=== PATIENT | female | born 1950 | race Caucasian/White ===

== ENCOUNTER → 2017-02-04 | Outpatient (CLI) | payer MEDICARE, BC ==
[~2017-02-04] MED LIST: ASPIRIN325 MG PO; BACTRIM DS TAB1 EACH PO; CPAP INH; DUREZOL5 ML OPHTH; HYDROCHLOROTH12.5 MG PO; MACROBID100 MG PO; NORVASC2.5 MG PO; PAIN RELIEVER325 MG PO; PREMARIN VAG30 GM TOP; REFRESH PLUS1 EACH OPHTH
--- NOTE | ~2017-02-04 | ECHO ---
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 Procedure Date Date: 02/04/2017 Start: 10:10 AM Indications:Shortness of breath. Additional Indications:The heart rate was appropriate as well as the blood pressure to the exercise stress. There was ST depression and complaints of chest pressure during the stress. The Ruiz treadmill score was -5 . Conclusions Summary Stress EKGs show inducible ST segment depression with rapid recovery. Findings consistent with possible ischemia. Stress Protocol Rest ECG RSR with T wave inversion V2. Resting HR:56 bpmResting BP:162/78 mmHg Pre-Stress Physical Exam History of JEROME going up incline. New diagnosis of hypertension started on HCTZ. Two paternal uncles with NE at age 40's. Exam and supervision by Mia Dumont APRN. Stress Peak HR: 141 bpm HR Response: Appropriate Peak BP: 192/88 mmHg BP Response: Appropriate Predicted HR: 152 bpm HR BP Product: 41476 % of predicted HR: 93 Test Duration: 04:32 min Exercise Effort: Fair Reason for Termination: Target heart rate Perceived Exertion: 16 ECG Sinus tachycardia with ST depression in Lead II, III, AVF, V4, V5 V6 Arrhythmias None Symptoms AT 2 minutes and 41 seconds complains of shortness of breath and chest pressure. All symptoms resolve with rest with in 3 minutes into recovery. Signature dtt: David Willis (cardio) dtd: 02/04/17 1010 Physician Self Edit
== END | disposition disaster alternative care site (69) ==
LOC: GCAR 09:43
DX: R06.02 Shortness of breath (principal)

== ENCOUNTER → 2017-02-11 | Outpatient (CLI) | payer MEDICARE, BC ==
[2017-02-11 17:13] LABS: BASOPHIL # 0.1 K/uL (0.0-0.2); BASOPHIL % 1.2 %; EOSINOPHIL # 0.7 K/uL (0.0-0.5); EOSINOPHIL % 12.5 %; HEMATOCRIT 37.6 % (33.0-46.0); HEMOGLOBIN 12.8 g/dL (10.0-15.0); IMMATURE GRANULOCYTE % 0.4 %; LYMPHOCYTE # 1.6 K/uL (0.8-4.0); LYMPHOCYTE % 30.3 %; MCV 82.3 fl (83.0-98.0); MONOCYTE # 0.5 K/uL (0.0-1.0); MONOCYTE % 9.4 %; MPV 9.1 fl (9.4-12.4); NEUTROPHIL # (ANC) 2.4 K/uL (1.8-7.8); NEUTROPHIL % 46.2 %; NRBC % 0 /100WBC (0-0.00); PLATELET COUNT 238 K/uL (150-450); RBC 4.57 M/uL (3.50-5.50); RDW-CV 12.3 % (11.9-14.6); WBC 5.2 K/uL (4.0-11.0)
[2017-02-11 17:22] LABS: ANION GAP 9.9 (10.0-19.0); BLOOD UREA NITROGEN 16 mg/dL (6-24); CALCIUM 8.6 mg/dL (8.5-10.5); CHLORIDE 98 mMol/L (96-110); CO2 28 mMol/L (22-32); CREATININE 0.7 mg/dL (0.5-1.1); ESTIMATED GFR (MDRD EQUATION) > 60; POTASSIUM 3.9 mMol/L (3.7-5.1); SODIUM 132 mMol/L (135-145)
== END | disposition disaster alternative care site (69) ==
LOC: LCNC 17:08
PROVIDERS: Internal Medicine Interventional Cardiology
DX: R07.9 Chest pain, unspecified (principal)

== ENCOUNTER → 2017-02-20 | Outpatient (CLI) | payer MEDICARE, BC ==
[2017-02-20 11:38] LABS: BILIRUBIN URINE NEGATIVE (NEGATIVE); BLOOD URINE 250 /UL (NEGATIVE); COLOR URINE STRAW (YELLOW); GLUCOSE URINE NEGATIVE (NEGATIVE); KETONE URINE NEGATIVE (NEGATIVE); LEUKOCYTES URINE 100 /UL (NEGATIVE); NITRITE URINE NEGATIVE (NEGATIVE); PROTEIN URINE NEGATIVE (NEGATIVE); SPEC GRAVITY URINE 1.005 (1.003-1.035); TURBIDITY URINE 1+ (CLEAR); UROBILINOGEN URINE NORMAL (NORMAL)
[2017-02-20 11:45] LABS: BACTERIA URINE NEGATIVE (NEGATIVE); EPITHELIAL URINE 0-2 #/HPF (NEGATIVE)
== END | disposition disaster alternative care site (69) ==
LOC: LCNC 11:34
PROVIDERS: Internal Medicine Interventional Cardiology
DX: M54.9 Dorsalgia, unspecified (principal)

== ENCOUNTER 2017-02-24 09:05 | Outpatient (CLI) | payer MEDICARE, BC ==
[~2017-02-24] VITALS: Ht 163.8 cm; Wt 80.3 kg
--- NOTE | ~2017-02-24 | CATH ---
Cardiac Diagnostic Report Demographics Patient Name HUYEN Han Gender Female Date of 1950 Age 67 year(s) Patient Number [id number] Date of Study 02/24/2017 Visit Number [id number] Room Number [id number] [place] [id number] Ht 162.56 cm Wt 80.3 kg Referring Alba Hernandez MD Primary Physician Physician Jos Jalloh MD Performing Alba Hernandez MD Secondary Physician Physician Diagnostic Alba Hernandez MD Assisting Physician Physician Interventional Physician Psychodramatist Physician Findings and Conclusions Diagnostic Findings and Conclusion Nonobstructive CAD. Normal LV function. Diastolic dysfunction. Diagnostic Recommendations Medical therapy. Procedure Description The patient was brought to the diagnostic cardiac catheterization-EP laboratory in the fasting, non-sedated state. Informed consent was obtained in the written and verbal form after the risks and benefits were explained. The patient had no further questions and agreed to proceed. The planned puncture-incision site(s) were shaved and prepped with ChloraPrep and draped in the usual sterile manner. Conscious sedation, supplemental oxygen, and pain control medications were delivered by a registered nurse under physician guidance. Surface ECG rhythm, blood pressure measurement, and pulse oximetry were monitored throughout the procedure. Arterial access. The access site was infiltrated with lidocaine. The vessel was entered with the Seldinger technique. A sheath was advanced into the vessel and used for catheter placement. Selective left coronary angiography. A catheter was advanced into the left coronary vessel ostium under Fluoroscopic guidance. Contrast was injected by hand. Images were obtained in multiple projections. Selective right coronary angiography. A catheter was advanced into the right coronary vessel ostium under fluoroscopic guidance. Contrast was injected by hand. Images were obtained in multiple projections. Left heart catheterization with ventriculography. A catheter was advanced across the aortic valve to the left ventricle under fluoroscopic guidance. Resting hemodynamics were obtained. With the catheter at the left ventricular apex, contrast was injected. Images were obtained in MAURITIAN projections. Post-ventriculography LV pressure was obtained. The catheter was gradually withdrawn into the aorta with continuous pressure recording. Arterial artery hemostasis was achieved. The patient was transferred to a regular nursing floor via cart accompanied by a nurse. The patient left the laboratory in stable condition. Diagnostic Cath Status: Elective Procedure Procedure Type Diagnostic procedure:Ventriculogram:, Left, Angiography:, Coronary Angios w/[facility] Indications: Chest pain and Shortness of breath. The procedure was explained in detail to the patient. Risks, complications and alternative treatments were reviewed. Written consent was obtained. Medications Reviewed with Patient prior to Procedure. Angiographic Findings Dominance: Right Cardiac Arteries and Lesion Findings LMCA: Normal (0% Stenosis).Medium, normal. LAD: Normal (0% Stenosis).LAD medium, mild mid plaque, normal. Diagonal 1 small, normal. LCx: Normal (0% Stenosis).Circumflex large, nondominant, normal. OM1 small, normal. OM2 large, normal. RCA: Normal (0% Stenosis).RCA medium to large, normal. PL small, normal. PDA medium, normal. Procedure Data Procedure Date Date: 02/24/2017Start: 10:31 AMEnd: 10:52 AM Entry Locations - Retrograde Percutaneous access was performed through the Right Femoral artery (Primary location). A 6 Fr sheath was inserted. Closure Comments: Deployed by Valeria. Procedure Medications Order and Administration + + +-------+------+ !Time !Medication !Dosage !Route ! + + +-------+------+ 02/24/2017 10:28 AM !Fentanyl !25 mcg !I.V. ! + + +-------+------+ !02/24/2017 10:30 AM !Versed !1 mg !I.V. ! + + +-------+------+ Devices Used - A6 Fr. BS JL 4 Diag. Catheterwas used for:Left coronary angiography. - A6 Fr. BS JR 4 Diag. Catheterwas used for:Right coronary angiography. - A6 Fr. BS Angled Pigtail Diag. Catheterwas used for:Left ventriculography. Contrast Material - Isovue 166328 ml Fluoroscopy Time: Diagnostic: 2:30 minutes. Total: 2:30 minutes. Fluoroscopy Dose: Diagnostic: 502 mGy. Total: 502 mGy. Estimated Blood Loss: 4 ml. Medical History Allergies - Latex. - Other:(Tapentadol). Risk Factors The patient risk factors include:treated hypertension, family history of premature CAD, last creatinine: 0.7 mg/dl and creatinine clearance: 96.15 ml/min. Admission Data Admission Date: 02/24/2017 Admission Time: 09:05 AM Admit Source: Other Insurance Payors: Medicare. Admission Medications + +------+-------+ + + + + !Medication!Dosage!Times !Last !Last !Administered !Comments ! ! ! !Per Day!Delivery !Delivery ! ! ! ! ! ! !Date !Time ! ! ! + +------+-------+ + + + + !Aspirin ! ! ! ! !Yes ! ! !(any) ! ! ! ! ! ! ! + +------+-------+ + + + + Clinical Evaluation Leading to Procedure - The patient's CAD presentation was assessed as: Unstable angina. - The patient's anginal syndrome during the past two weeks was assessed as: Class III according to the [place] [employer] Classification System (CCS). Anti-anginal medications were prescribed during the past two weeks. The medication is: Ca channel Blockers. [facility] Ventriculography Findings Increased LVEDP with Diastolic Dysfunction. LV function assessed as:Normal. Ejection Fraction - Method: LV gram. EF%: 65. Hemodynamics Condition: Rest O2 Consumption: Estimated: 161.23Heart Rate: 55 bpm Pressures (mmHg) +-----+ + !Site !Pressure ! +-----+ + !AO !121/60 (85) ! +-----+ + !AO !125/58 (84) ! +-----+ + !LV !122/2 ,21 ! +-----+ + !LV !121/3 ,20 ! +-----+ + !LV !121/4 ,21 ! +-----+ + !LV !125/1 ,23 ! +-----+ + !AO !123/58 (86) ! +-----+ + !LV !123/1 ,22 ! +-----+ + Valve Gradients and Areas + +---------+---------+---------+ +---------+ + !Valve !Peak !Mean !Area !Index !Flow !Source ! + +---------+---------+---------+ +---------+ + !Aortic !0 !0 ! ! ! ! ! + +---------+---------+---------+ +---------+ + !Aortic !0 !0 ! ! ! ! ! + +---------+---------+---------+ +---------+ + Shunts Oxygen Values O2 Capacity 174.08 O2 Consumption 161.23 Discharge Data Discharge Date: 02/24/2017 Hospital Status: Outpatient Signatures dtt: David Willis (cardio) dtd: 02/24/17 1031 Physician Self Edit
[~2017-02-24 09:05] MED LIST changes: -BACTRIM DS TAB1 EACH PO
[2017-02-24] MEDS ORDERED: BACTRIM DS TAB1 EACH PO (09:17)
== END 2017-02-24 14:15 | disposition disaster alternative care site (69) ==
LOC: GCAT 09:05 → GPCU 09:05 → GPOC 11:00 → GCAT 14:15
PROC: B2111ZZ Fluoroscopy of Multiple Coronary Arteries using Low Osmolar Contrast (ICD-10-PCS; principal; 2017-02-24)
PROC: 4A023N7 Measurement of Cardiac Sampling and Pressure, Left Heart, Percutaneous Approach (ICD-10-PCS; principal; 2017-02-24)
DX: R94.39 Abnormal result of other cardiovascular function study (principal); R07.9 Chest pain, unspecified; I51.89 Other ill-defined heart diseases; I10 Essential (primary) hypertension; E66.9 Obesity, unspecified; Z68.30 Body mass index [BMI] 30.0-30.9, adult; G47.33 Obstructive sleep apnea (adult) (pediatric)
CPT/HCPCS: C1760; J1644; J2001; J2250; J3010; J7030